=== PATIENT | male | born 1970 | race Asian ===

== ENCOUNTER → 2016-05-28 | Outpatient (CLI) | payer OTHER ==
[~2016-05-28] MED LIST: LIDOCAINE 1% 30 ML SDV ONE; NA BICARBONATE 50 MEQ/50 ML VIAL ONE
--- NOTE | 2016-05-28 16:57 | US ---
Ultrasound-Guided Core Needle Biopsy of Mass of Right Parotid Gland HISTORY: Palpable lump in right parotid gland for two months. TECHNIQUE: For ultrasound imaging guidance, the transducer and cable were placed in a sterile cover, and sterile coupling gel was used. Skin over the right parotid gland was prepped and draped in ster ile fashion. 1% Xylocaine was used for local anesthetic. After a skin salima with a scalpel, an 18-ga uge [facility] core biopsy needle was used to obtain five core specimens from the mass in the right paroti d gland. Four of the samples were rinsed off into sterile saline and later transferred to formalin. One sample was placed in Jonah's solution for possible flow cytometry, as needed. Hemostasis was obt ained by manual compression. The patient tolerated the procedure well and [facility] FINDINGS: Well-defined elliptical hypoechoic mass in the posterior aspect of the right parotid gland measures 1.4 cm longitudinal x 1.0 cm AP x 0.9 cm transverse. [place] are shown to terminate within the lesion. Additional lesions include a 9 mm by 5-mm intraparotid mass resembling a lymph node, as well as level 2 cervical adenopathy. IMPRESSION: Ultrasound-guided core needle biopsy of mass of right parotid gland. (PQRS measures: Current medications were listed in the medical record, including all known prescript ions, [id number] medications, herbal medications, and nutritional supplements. Tobacco use: N one. Prophylactic antibiotic: Unnecessary. VTE prophylaxis: Unnecessary.)
[2016-06-01 15:14] LABS: FINAL DIAGNOSIS See Comments (()); MICROSCOPIC DESCRIPTION See Comments (())
== END | disposition home or self-care (01) ==
LOC: FIMAGING 11:07
PROVIDERS: ATTEND Otolaryngology
PROC: 07B13ZX Excision of Right Neck Lymphatic, Percutaneous Approach, Diagnostic (ICD-10-PCS; principal; 2016-05-28)
DX: R22.1 Localized swelling, mass and lump, neck (principal)
CPT/HCPCS: 88184-90; 88185-91